=== PATIENT | female | born 1960 | race Caucasian/White ===

== ENCOUNTER → 2016-06-30 | Outpatient (CLI) | payer OTHER ==
[~2016-06-30] MED LIST: GADOBUTROL 10 ML VIAL IVP ONE
[2016-06-30 14:28] LABS: CREATININE 0.6 mg/dL (0.6-1.0); GLOMERULAR FILTRATION RATE > 60
--- NOTE | 2016-07-03 12:31 | MR ---
Cardiac MRI With and Without IV Contrast dated June 30, 2016 Indication: 55-year-old woman with conduction abnormality. Evaluate for sarcoidosis. Technique: MRI was performed of the heart using a 1.5 Khushboo MRI system. Long and short-axis images we re obtained of the heart with FIESTA, double inversion-recovery, and triple inversion-recovery images . Multiphase postcontrast imaging was performed after 10 mL of Gadavist IV contrast. Delayed postcont rast imaging was also obtained in both planes. The delayed contrast enhanced imaging needed to be rep eated and was performed on July 02, 2016. The patient received an additional 10 mL of Gadavist for the supplemental scan on July 02. Findings: The delayed contrast enhanced imaging is normal. No abnormal enhancement to suggest myocard ial sarcoidosis or amyloidosis. Normal 4 chamber heart with no structural abnormality. Normal thickness of the interventricular septu m (10 mm) and free wall of the left ventricle (10 mm) end diastole. No intracardiac filling defect. N o abnormal jet or evidence of valvular insufficiency. The thoracic aorta is normal in caliber. No aneurysm or dissection. No lymphadenopathy or mass throug hout the imaged portion of the chest. No pericardial or pleural effusion. Bone marrow signal is garrick l. Impression: Normal cardiac MRI. No evidence of sarcoidosis. Comment: Results were discussed with Dr. Alok Shipman on June 30 and July 03, 2016. Dr. Gonzalez has reviewed the examine and agrees with the findings and the impression.
== END ==
LOC: FIMAGING 13:40
PROVIDERS: ATTEND Internal Medicine Cardiovascular Disease
DX: I44.1 Atrioventricular block, second degree (principal); R00.1 Bradycardia, unspecified
CPT/HCPCS: A9585

== ENCOUNTER → 2016-07-02 | Outpatient (CLI) | payer OTHER ==
--- NOTE | 2016-07-03 12:49 | MR ---
MRI Cardiac, Without and With Contrast July 02, 2016 Indication: Conduction abnormality. Evaluate for sarcoidosis. Technique: Postcontrast imaging on June 30, 2016 was nondiagnostic. Patient returned for a second i njection on July 02, to complete the exam. Findings: Please refer to comprehensive cardiac MRI report dated June 30, 2016.
== END ==
LOC: FIMAGING 14:47
PROVIDERS: ATTEND Internal Medicine Cardiovascular Disease
DX: I45.9 Conduction disorder, unspecified (principal); I44.1 Atrioventricular block, second degree; R00.1 Bradycardia, unspecified
CPT/HCPCS: A9585

== ENCOUNTER 2016-07-29 08:10 | Observation (INO) | payer OTHER ==
[2016-07-29] MEDS ORDERED: diphenhydrAMINE 25 MG CAP PO ONE (08:14)
[2016-07-29] MEDS ORDERED: BACITRACIN IRRIGATION/NS 50,000 UNITS/1,000 ML BTL IRR ONE (08:14)
[2016-07-29] MEDS ORDERED: NS 1,000 ML IV ONE (08:14)
[2016-07-29] MEDS ORDERED: ceFAZolin 2 GM/DEXTROSE 100 ML IV ONE (08:14)
[2016-07-29] MEDS ORDERED: DIAZEPAM 5 MG TAB PO ONE (08:14)
[2016-07-29] MEDS ORDERED: ceFAZolin 2 GM in D5W 100 ML IV ONE (08:30)
[2016-07-29 08:57] LABS: % IMMATURE GRANULYOCYTES 0.5 % (0.0-1.1); ABSOLUTE IMMATURE GRANULOCYTES 0.04 10^3/uL (0.00-0.10); ADD DIFF? NO; ADD MORPH? NO; ADD SCAN? NO; ATYPICAL LYMPHOCYTE FLAG 0 (0-99); FRAGMENT RBC FLAG 0 (0-99); HEMATOCRIT 42.4 % (38.0-47.0); HEMOGLOBIN 14.5 g/dL (12.6-16.3); LEFT SHIFT FLG 0 (0-99); LIPEMIA HEMOLYSIS FLAG 90 (0-99); MEAN CELL HEMOGLOBIN 29.7 pg (27.9-34.1); MEAN CELL HEMOGLOBIN CONCENTR. 34.2 g/dL (32.4-36.7); MEAN CELL VOLUME 86.7 fL (81.5-99.8); PLATELET CLUMPS FLAG 10 (0-99); PLATELET COUNT 222 10^3/uL (150-400); RED BLOOD CELL COUNT 4.89 10^6/uL (4.18-5.33); RED CELL DISTRIBUTION WIDTH 12.3 % (11.5-15.2)
--- NOTE | 2016-07-29 08:57 | CPEKG ---
Heart Rate: 42 RR Interval: 1429 P-R Interval: 196 QRSD Interval: 138 QT Interval: 532 QTC Interval: 445 P [place]: 47 QRS [place]: 10 T Wave [place]: 118 EKG Severity - ABNORMAL ECG - EKG Impression: SINUS BRADYCARDIA EKG Impression: LEFT BUNDLE BRANCH BLOCK Electronically Signed By: Roxy Encinas 29-Jul-2016 09:48:31
[2016-07-29 09:23] LABS: ANION GAP 10 mEq/L (8-16); CALCIUM 8.8 mg/dL (8.5-10.4); CARBON DIOXIDE 25 mEq/l (22-31); CHLORIDE 110 mEq/L (97-110); CREATININE 0.6 mg/dL (0.6-1.0); GLOMERULAR FILTRATION RATE > 60; GLUCOSE 172 mg/dL (70-100); POTASSIUM 4.2 mEq/L (3.5-5.2); SODIUM 145 mEq/L (134-144)
[2016-07-29] MEDS ORDERED: LIDOCAINE 1% 30 ML SDV ONE (09:23)
[2016-07-29] MEDS ORDERED: MIDAZOLAM 2 MG/2 ML VIAL ONE (09:23)
[2016-07-29] MEDS ORDERED: BUPIVACAINE 0.5% 30 ML SDV ONE (09:24)
[2016-07-29] MEDS ORDERED: fentaNYL 100 MCG/2 ML INJ ONE (09:24)
[2016-07-29] MEDS ORDERED: IOPAMIDOL (ISOVUE-300) 50 ML VIAL IV ONE (09:24)
[2016-07-29 09:26] LABS: INR 1.1 (0.83-1.16); PROTIME(PATIENT) 14.1 SEC (12.0-15.0)
--- NOTE | 2016-07-29 11:41 | EPPROC ---
Electrophysiology Procedure Note: PROCEDURE PERFORMED: 1. Implantation of an A/V Pacemaker 2. Subclavian vein angiography 3. Fluoroscopy INDICATION: 2:1 AV block Syncope and Presyncope PROCEDURE NOTE: Patient presented to the cardiac catheterization laboratory in a fasting, post absorptive state. Cardiac clay processing labourer nurse administered moderate sedation. The left infraclavicular area was prepped and draped in the usual sterile fashion. Lidocaine plus bupivacaine was used for local anesthesia. Left subclavian venography was performed by injection of iodinated contrast into the left antecubital vein. This was done to assure patency of the vein and also to assess for any anatomical aberrations. Using a combination of blunt and sharp dissection and electrocautery, the dissection was carried down to the prepectoral fascia. A pocket was made in this anatomical plane. All bleeding was controlled with electrocautery. The pocket was packed with gauze soaked in antibiotic solution. Fluoroscopy was utilized during the entire procedure for venous access and placement of the leads. Using a direct stick technique the left extrathoracic axillary vein was accessed with 2 sticks using the modified Seldinger technique. Placement of the guidewires into the venous system was confirmed by low-pressure blood return and also by visualizing the guidewires advancing into the inferior vena cava. A purse string suture was applied around the guidewires. Two #7 [place] sheaths were advanced under fluoroscopic guidance over the guidewire. An active fixation ventricular lead was advanced into the right ventricular apex and screwed in place. An active fixation atrial lead was advanced into the right atrial appendage and screwed in place. The peel away sheaths were removed. Pacing thresholds, sensing parameters and lead impedances were measured. There was no diaphragmatic stimulation at maximum output. The leads were sutured to the prepectoral fascia with 3 nonabsorbable sutures each. The pocket was again inspected for any bleeding. The leads were attached to the pacemaker securely. The pacemaker was inserted into the pocket and secured in place with a nonabsorbable suture. Fluoroscopy was performed in [place] and ANDREY planes to verify right-sided placement of the leads. Also fluoroscopy of the pacemaker pocket was performed. The pacemaker pocket was closed in 3 layers with absorbable monocryl sutures and teresa. Appropriate dressing was applied. The patient left the cardiac catheterization laboratory in stable condition. Serial Numbers: 1. Device: BROCK YOO DR, [id number]. SN: [id number] 2. Atrial Lead: SJM TENDRIL STS, 2087TC/46. SN: [id number] 3. Ventricular Lead: SJM TENDRIL STS, /52. SN: [id number] Stimulation Thresholds & Impedance Measurements: 1. Atrial Lead: 1.0V@0.5ms/3.5mV/535 ohm 2. Ventricular Lead: 0.4V@0.5ms/5.9mV/885 ohm Abner Pacing Parameters 1. Pacing mode:DDD 2. Lower rate: 60 PPM 3. Upper tracking rate:130 PPM 4. Upper sensor rate: 130 PPM Patient Problems: Problems Problem Status Diagnosed Heart block AV second degree Acute
[2016-07-29] MEDS ORDERED: HYDROCODONE/APAP 5/325 TAB PO PRN (11:43)
--- NOTE | 2016-07-29 12:11 | CPEKG ---
Heart Rate: 71 RR Interval: 845 P-R Interval: 196 QRSD Interval: 148 QT Interval: 472 QTC Interval: 513 P [place]: 2 QRS [place]: -82 T Wave [place]: 83 EKG Severity - ABNORMAL ECG - EKG Impression: ATRIAL-SENSED VENTRICULAR-PACED RHYTHM Electronically Signed By: Roxy Encinas 29-Jul-2016 14:33:53
--- NOTE | 2016-07-29 12:46 | DX ---
Portable chest x-ray 1202 hours. History: Post pacemaker placement. Findings: Dual lead pacemaker unit is in place in good position. There is no pneumothorax. Heart size is borderline enlarged. Pulmonary vasculature is not engorged. There is elevation left hemidiaphragm . There is no consolidation or effusion. Osseous structures appear to be intact. Impression: 1. Dual lead pacemaker unit in place without pneumothorax. 2. Elevation left hemidiaphragm.
[2016-07-29] MEDS ORDERED: glipiZIDE 5 MG TAB PO SCH (18:00)
[2016-07-29 20:13] VITALS: RESP 18
[2016-07-30 05:29] LABS: % IMMATURE GRANULYOCYTES 0.5 % (0.0-1.1); ABSOLUTE IMMATURE GRANULOCYTES 0.05 10^3/uL (0.00-0.10); ADD DIFF? NO; ADD MORPH? NO; ADD SCAN? NO; ATYPICAL LYMPHOCYTE FLAG 0 (0-99); FRAGMENT RBC FLAG 0 (0-99); HEMATOCRIT 41.9 % (38.0-47.0); LEFT SHIFT FLG 0 (0-99); LIPEMIA HEMOLYSIS FLAG 80 (0-99); MEAN CELL HEMOGLOBIN 29.4 pg (27.9-34.1); MEAN CELL HEMOGLOBIN CONCENTR. 33.4 g/dL (32.4-36.7); MEAN CELL VOLUME 87.8 fL (81.5-99.8); MEAN PLATELET VOLUME 9.2 fL (8.7-11.7); PLATELET CLUMPS FLAG 0 (0-99); PLATELET COUNT 220 10^3/uL (150-400); RED BLOOD CELL COUNT 4.77 10^6/uL (4.18-5.33); RED CELL DISTRIBUTION WIDTH 12.3 % (11.5-15.2)
[2016-07-30 05:59] LABS: ANION GAP 9 mEq/L (8-16); CALCIUM 9.2 mg/dL (8.5-10.4); CARBON DIOXIDE 24 mEq/l (22-31); CHLORIDE 109 mEq/L (97-110); CREATININE 0.6 mg/dL (0.6-1.0); GLOMERULAR FILTRATION RATE > 60; GLUCOSE 111 mg/dL (70-100); POTASSIUM 4.2 mEq/L (3.5-5.2); SODIUM 142 mEq/L (134-144)
[2016-07-30] MEDS ORDERED: LEVOTHYROXINE 150 MCG TAB PO SCH (06:00)
[2016-07-30 08:37] VITALS: BP 141/60
--- NOTE | 2016-07-30 08:37 | CPEKG ---
Heart Rate: 70 RR Interval: 857 P-R Interval: 204 QRSD Interval: 144 QT Interval: 460 QTC Interval: 497 P [place]: 10 QRS [place]: -82 T Wave [place]: 85 EKG Severity - ABNORMAL ECG - EKG Impression: SINUS RHYTHM EKG Impression: LEFT BUNDLE BRANCH BLOCK Electronically Signed By: Roxy Encinas 30-Jul-2016 08:41:53
[2016-07-30] MEDS ORDERED: LISINOPRIL 5 MG TAB PO SCH (09:00)
[2016-07-30 09:10] VITALS: PULSE 66; TEMP 97.7; O2SAT 89
--- NOTE | 2016-07-30 10:02 | DX ---
PA and Lateral Chest Indication: Pacemaker placement Comparison: Portable chest dated July 29, 2016 Findings: The left anterior chest wall dual-lead pacemaker has well-positioned right atrial and right ventricle leads. No pneumothorax or edema. Lungs are clear except for minimal bibasilar atelectasis. Heart size within normal limit. Impression: 1. New well-positioned dual-lead pacemaker. 2. No pneumothorax or edema.
== END 2016-07-30 12:52 | disposition home or self-care (01) ==
LOC: FCATH 08:10 → F2W 11:43
PROVIDERS: ADMIT Internal Medicine Cardiovascular Disease; ATTEND Internal Medicine Cardiovascular Disease
PROC: 02HK3JZ Insertion of Pacemaker Lead into Right Ventricle, Percutaneous Approach (ICD-10-PCS; principal; 2016-07-29)
PROC: 0JH606Z Insertion of Pacemaker, Dual Chamber into Chest Subcutaneous Tissue and Fascia, Open Approach (ICD-10-PCS; principal; 2016-07-29)
PROC: 02H63JZ Insertion of Pacemaker Lead into Right Atrium, Percutaneous Approach (ICD-10-PCS; principal; 2016-07-29)
DX: I44.1 Atrioventricular block, second degree (principal); R55 Syncope and collapse
CPT/HCPCS: 33208; 71010; 71020; 93005; G0378; C1785; C1898; J0690; J2250; J3010; Q9967

== ENCOUNTER → 2018-12-14 | Day surgery (SDC) | payer OTHER | LOC: FCATH 09:11 ==